=== PATIENT | male | born 1990 | race African-American/Black ===

== ENCOUNTER 2021-05-04 16:50 | Emergency (ER) | payer OTHER, SELFPAY ==
[2021-05-04] MEDS ORDERED: Ketorolac Tromethamine 30 MG/ML VIAL ONE (20:23)
== END 2021-05-04 20:46 | disposition home or self-care (01) ==
LOC: CSHERS 16:50
DX: M79.10 Myalgia, unspecified site (principal); M54.2 Cervicalgia; M54.6 Pain in thoracic spine; R07.81 Pleurodynia; V43.62XA Car passenger injured in collision with other type car in traffic accident, initial encounter
CPT/HCPCS: 71045; 72125; 96372; J1885